=== PATIENT | male | born 1960 ===

== ENCOUNTER 2017-05-10 07:12 | Day surgery (SDC) | payer MEDICARE ==
[2017-05-09 12:16] VITALS: BMI 45.1
[2017-05-10 07:48] LABS: BASO # 0.1 K/uL (0.0-0.2); EOS # 0.3 K/uL (0.0-0.7); EOS % 4.3 % (0.0-4.0); HEMOGLOBIN 13.3 g/dL (12.0-18.0); LYMPH % 33.8 % (20.0-40.0); MEAN CELL VOLUME 89.4 fL (80.0-94.0); MEAN CORPUSCULAR HEMOGLOBIN 29.7 pg (27.0-31.0); MEAN CORPUSCULAR HGB CONC 33.2 g/dL (33.0-37.0); MEAN PLATELET VOLUME 8.3 fL (7.2-11.7); MONO # 0.5 K/uL (0.0-0.8); MONO % 8.1 % (0.0-10.0); NEUT # 3.1 K/uL (1.8-7.0); NEUT % 52.8 % (50.0-75.0); NRBC % 0.1 % (0.0-2.0); RBC 4.47 Mil/uL (4.40-5.90); RED CELL DISTRIBUTION WIDTH 14.1 % (11.5-14.5); WHITE BLOOD COUNT 5.8 K/uL (4.8-10.8)
[2017-05-10 07:50] LABS: PROTHROMBIN TIME 11.5 SECONDS (9.7-12.2)
[2017-05-10 07:55] LABS: BLOOD UREA NITROGEN 15 mg/dL (9-20); CALCIUM 8.9 mg/dl (8.6-10.4); GFR AFRICAN-AMERICAN > 60; GFR NON-AFRICAN AMERICAN > 60
[2017-05-10] MEDS ORDERED: Verapamil 2 ML ONE (10:26)
[2017-05-10] MEDS ORDERED: Iohexol 350mg/ml 100 ML ONE (10:26)
[2017-05-10] MEDS ORDERED: Midazolam 2 MG/2 ML VIAL ONE (10:26)
[2017-05-10] MEDS ORDERED: Nitroglycerin 50mg in D5W 50 MG/250 ML BOTTLE IV ONE (10:27)
[2017-05-10] MEDS ORDERED: Lidocaine 4% (Laryng-O-Jet) Kit MM ONE (10:38)
[2017-05-10] MEDS ORDERED: ceFAZolin IV 1 gm in Dextrose 1 GM/50 ML BAG IVPB ONE (11:25)
--- NOTE | 2017-05-11 18:37 | CARDCATH ---
PROCEDURE DATE: 05/10/2017 PROCEDURES: 1. Left heart catheterization. 2. Coronary angiogram. CLINICAL INDICATIONS: 1. Chest pain. 2. Preop cardiac risk assessment. 3. Abdominal stress test. 4. Hypertension. 5. Diabetes. REFERRING PHYSICIAN: Mike Shafer M.D. PERFORMING PHYSICIAN: Hernandez Andrews M.D. DESCRIPTION OF PROCEDURE: After informed consent, the patient was prepped and draped in the usual sterile fashion. A 2% lidocaine was given in the right wrist for local anesthesia. Using micropuncture technique, a 6-[place] sheath was introduced into the right radial artery. A JR4 6-[place] diagnostic catheter crossed into the left ventricle across the aortic valve. Left ventricular end-diastolic pressure measured. Hand injection and left ventricular angiogram were performed. Then, the catheter was pulled back across the aortic valve. The gradient across the aortic valve was measured. Then, JR4 diagnostic catheter engaged into left main coronary artery. Contrast injected and left coronary angiogram was performed. Then, the same catheter was engaged into right coronary artery. Contrast injected and right coronary angiogram was performed. The patient tolerated the procedure well. Post procedure, Terumo radial band applied with excellent hemostasis. FINDINGS: 1. Left main coronary artery is patent. 2. Left anterior descending and diagonal branches are patent. 3. Left circumflex and obtuse marginal branches are patent. 4. Right coronary artery is dominant and patent. 5. Left ventricular ejection fraction is approximately 60%. No wall motion abnormality is noted. EDP is 24. CONCLUSION: 1. Nonobstructive coronaries. 2. Normal left ventricular systolic function. Recommend medical management. Hernandez Andrews MD
== END 2017-05-10 14:57 | disposition home or self-care (01) ==
LOC: C.CATHLAB 07:12
PROVIDERS: ATTEND Internal Medicine Cardiovascular Disease
DX: R07.89 Other chest pain (principal); I10 Essential (primary) hypertension; E11.9 Type 2 diabetes mellitus without complications
CPT/HCPCS: 36415; 80048; 85025; 85610; 85730; 93452; C1769; C1887; J0690; J1644; J2250; J3010; Q9967